=== PATIENT | male | born 1995 | race Caucasian/White ===

== ENCOUNTER 2024-11-19 16:42 | Emergency (ER) | payer SELFPAY ==
[~2024-11-19] VITALS: Ht 190.5 cm; Wt 108.5 kg
[~2024-11-19 16:42] MED LIST: FAMO-49 PO
[2024-11-19] MEDS ORDERED: LORA10TA65 PO (17:24)
[2024-11-19] MEDS ORDERED: ALBU18HF2 INH (17:24)
--- NOTE | 2024-11-19 17:24 | Physician Documentation ---
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 Lesion present for 5-6 days. No resolution with Benadryl. Secondary complaint and some mild shortness of breath. Medication Reconciliation Scheduled Albuterol Sulfate (Ventolin Hfa), 2 PUFFS INH Q4HPRN Famotidine (Famotidine), 1 TAB PO Q12H Loratadine (Claritin), 1 TAB PO DAILY Review of Systems All Other Systems at this time: Reviewed and Negative RESP: Reports: short of breath Integ: Reports: rash Physical Exam Physical Exam Vital Signs: RN Vital Signs have been reviewed: Yes, Heart Rate: 68, R espiratory Rate: 18, BP: 128/69, Pulse Oximetry: 98, Weight: 108.500 General Appearance: alert, WD/WN, mild distress Head: normal inspection Face: normal inspection Pupils/EOM/Fundus: PERRLA Respiratory: lungs clear, other (Decreased forced expiratory volume) Chest: no accessory muscle use Cardiovascular: normal peripheral pulses, regular rate, rhythm Extremities: normal range of motion Neurologic: oriented x4 Motor / Sensory: no motor deficit, no sensory deficit Progress Results/Orders Results/Orders Completed Orders - JASON AMARAL Triamcinolone Acet 40mg/Ml Inj (Kenalog- (11/19/24 17:20) Medications Received in ER Medications (Trade) Dose Ordered Sig/Rober Route PRN Reason Start Time Stop Time Status Last Admin Dose Admin (Kenalog-40 inj) 60 mg ONCE ONCE IM 11/19/24 17:20 11/19/24 17:22 DC 11/19/24 17:46 60 MG Vital Signs 11/19/24 17:01 Pulse 68 Resp 18 B/P (MAP) 128/69 Pulse Ox 98 Medical Decision Making Differential Diagnosis Examination history consistent with contact dermatitis poison oak type. We will administer 60 mg of Kenalog and recommend daily antihistamine and albuterol use while working in poison oak environment. Departure Disposition: HOME / SELF CARE / HOMELESS Impression: Primary Impression: Allergic contact dermatitis Qualified Codes: L23.7 - Allergic contact dermatitis due to plants, except food Condition: Improved Discharge Instructions: Contact Dermatitis Additional Instructions: Today in the emergency department you received an injection of Kenalog. Please obtain prescriptions for Benadryl and antihistamine to be used daily. Make f ollow up appointment with the primary care physician for consideration of referral to performance improvement coordinator. Thank you for visiting [facility]. Referrals: NO PRIMARY CARE PROVIDER (PCP) Prescriptions Loratadine (Claritin) 10 Mg Tablet 1 TAB PO DAILY for allergy symptoms for 30 Days, #30 TAB 0 Refills Prov: JASON AMARAL 11/19/24 Albuterol Sulfate (Ventolin Hfa) 90 Mcg Hfa.aer.ad 2 PUFFS INH Q4HPRN, #1 INHALER Prov: JASON AMARAL 11/19/24 Education Educated: Patient Educated regarding: diagnosis, treatment, prognosis Signature Scribe Signature: . Attestation: JASON CHRISTIAN November 19, 2024 17:24
[2024-11-19] MEDS: triamcinolone acetonide 40mg/ml inj IM ONE (17:46)
[2024-11-19 17:53] VITALS: BP 126/70; PULSE 68; RESP 16; TEMP 98.3; O2SAT 99
== END 2024-11-19 17:51 | disposition home or self-care (01) ==
LOC: ER 16:42
DX: L23.7 Allergic contact dermatitis due to plants, except food (principal)
CPT/HCPCS: 96372; 99283; J3301

== ENCOUNTER 2024-12-20 16:28 | Emergency (ER) | payer OTHER ==
[~2024-12-20] VITALS: Ht 190.5 cm; Wt 80.8 kg
[~2024-12-20 16:28] MED LIST changes: +ALBU18HF2 INH; +LORA10TA65 PO
[2024-12-20] MEDS: proparacaine 0.5% ophthalmic drops 15ml EACHEYE ONE (17:39)
--- NOTE | 2024-12-20 18:29 | Physician Documentation ---
History of Present Illness ~ Chief Complaint: Foreign body Stated Complaint: "SOMETHING IN MY LT EYE" Time Seen by MD: 17:21 HPI This is a 29-year-old male who presents with a foreign body to his left eye, patient reports that he did did not notice a foreign body tell his eye began to hurt he was driving, patient reports that he was using a chainsaw in shipping tree limbs earlier in the day though was wearing eye protection Medication Reconciliation Allergies: Coded Allergies: No Known Allergies (Unverified , 12/20/24) Scheduled Albuterol Sulfate (Ventolin Hfa), 2 PUFFS INH Q4HPRN Ciprofloxacin Hcl Ophth* (Ciloxan 0.35 Ophth Drops*), 2 DROP LEFTEYE Q6H Famotidine (Famotidine), 1 TAB PO Q12H Loratadine (Claritin), 1 TAB PO DAILY Review of Systems ROS Foreign body in eye as stated above in the HPI, otherwise all systems are reviewed and negative. Physical Exam Vital Signs: Temperature: 98.1, Heart Rate: 78, Respiratory Rate: 15, BP: 140/75, Pulse Oximetry: 96, Weight: 80.800 Physical Exam VITALS: Reviewed and as above. GENERAL: Alert, nontoxic appearing, no apparent distress. HEENT: PERRLA, EOMI, foreign body on the surface of left conjunctiva at the 9 o'clock position, left conjunctiva mildly injected, right conjunctiva noninjected with no foreign body observed, no periorbital swelling or erythema. No Eri sign, small area of fluorescein uptake to the corner of conjunctiva on medial corner of eye RESPIRATORY: No increased work of breathing, no respiratory distress, speaking in full clear sentences Procedures Eye Procedure Alcaine Drops Administered: Yes Foreign Body/Rust Ring Removal: removal w/ cotton swab Reexamination after removal: abrasion Antibiotic Ointment/Drps Admin: left eye Tolerated Procedure Well?: yes, no complications Procedure Note A foreign body was removed from the surface of the left eye, after removal there was no Eri sign or additional fluorescein uptake at the area of the foreign body though there was a small amount of fluorescein uptake prior to and after procedure in the lateral corner of the left eye. Progress Results/Orders Results/Orders Completed Orders - JOSE ELLIOTT ROVING TECHNICIAN Proparacaine Ophth Solution (Alcaine Oph (12/20/24 17:15) Ibuprofen Tablet (Motrin Tablet) (12/20/24 18:35) Ciprofloxacin Ophth Drops (Ciloxan 0.3% (12/20/24 18:35) Vital Signs 12/20/24 12/20/24 16:30 18:56 Temp 98.1 98.6 Pulse 78 70 Resp 15 16 B/P (MAP) 140/75 138/74 Pulse Ox 96 99 Medical Decision Making Findings This 29-year-old male presented with a foreign body in his left eye, fluorescein stain of the eye did not demonstrate evidence of corneal abrasion, ulcer, or globe rupture on initial exam and foreign body was removed utilizing a cotton- tipped applicator from the surface of the conjunctiva, reexamination and fluorescein stain did not demonstrate evidence of corneal abrasion, ulcer, or globe rupture on follow up exam though there was a small area of fluorescein uptake and the conjunctiva. Remainder of physical exam was benign and patient is appropriate for outpatient follow up, patient provided prescription for antibiotic ophthalmologic drops and provided home care instructions and return to care precautions which he verbalized understanding of. Eye Diff. Dx: Considerations: Include: [place], Conjuctivits-allergic, Conjuctivitis-bacterial, Conjuctivits-chlamydial, Conjuctivitis-viral, Corneal abrasion, Corneal laceration, Foreign body-corneal, Foreign body-intraocular, Foreign body-lid, Globe rupture, Hordeolum, Iritis, Orbital cellulitis, Periobital cellulitis, Subconjunctival hem, Uveitis, Vitreous hemorrhage Departure Disposition: 01 HOME / SELF CARE / HOMELESS Impression: Primary Impression: Eye foreign body Qualified Codes: T15.92XA - Foreign body on external eye, part unspecified, left eye, initial encounter Condition: Improved Discharge Instructions: Foreign Body, Eye Additional Instructions: Please see the attached home care instructions. Please take the antibiotics eyedrops as prescribed for the next five days. You may use ibuprofen and or Tylenol as needed for pain as directed by [id number] packaging. Please return to the emergency department for any new or worsening concerning symptoms. Please follow up with your primary care provider or medical provider of your choice for a recheck in the next few days. Referrals: NO PRIMARY CARE PROVIDER (PCP) Prescriptions Ciprofloxacin Hcl Ophth* (Ciloxan 0.35 Ophth Drops*) 2.5 Ml Bottle 2 DROP LEFTEYE Q6H for 5 Days, #5 ML Prov: JOSE ELLIOTT 12/20/24 Education Educated: Patient Educated regarding: diagnosis, treatment, prognosis, need for follow up Signature Scribe Signature: No scribe Attestation: The note accurately reflects work and decisions made by me.SHELLIE Rocha 12/21/24 03:02 JOSE ELLIOTTP Dec 20, 2024 18:29
[2024-12-20] MEDS ORDERED: CIPR2.5D21 LEFTEYE (18:32)
[2024-12-20] MEDS: ibuprofen tablet 400 MG TABLET PO ONE (18:45)
[2024-12-20] MEDS: ciprofloxacin 0.3% 2.5ml ophthalmic solution LEFTEYE ONE (18:52)
[2024-12-20 18:56] VITALS: BP 138/74; PULSE 70; RESP 16; TEMP 98.6; O2SAT 99
== END 2024-12-20 18:57 | disposition home or self-care (01) ==
LOC: ER 16:29
DX: T15.92XA Foreign body on external eye, part unspecified, left eye, initial encounter (principal); W44.9XXA Unspecified foreign body entering into or through a natural orifice, initial encounter; Y93.89 Activity, other specified; Y92.89 Other specified places as the place of occurrence of the external cause; Y99.8 Other external cause status
CPT/HCPCS: 65205; 99284